=== PATIENT | female | born 1995 | race Caucasian/White ===

== ENCOUNTER 2017-05-31 20:05 | Emergency (ER) | payer OTHER ==
[~2017-05-31] VITALS: Ht 175.3 cm; Wt 67.4 kg
[2017-05-31 20:19] VITALS: TEMP 36.7; Ht 175.3 cm; Wt 67.4 kg
[2017-05-31] MEDS ORDERED: PANTOprazole SOD 40 MG TAB PO STA (21:36)
[2017-05-31] MEDS ORDERED: LIDOCAINE HCL 2% VISC SOLN 20 ML UDC PO STA (21:36)
[2017-05-31] MEDS ORDERED: ALUMINUM/MAGNESIUM SUSP 30 ML UDC PO STA (21:36)
[2017-05-31] MEDS ORDERED: BCPILLS PO (21:43)
[2017-05-31 22:06] LABS: BASO % 0.6 %; BASO ABS # 0.03 K/uL (0-0.2); EOS ABS # 0.05 K/uL (0-0.5); HEMATOCRIT 37.7 % (37-47); HEMOGLOBIN 13.4 g/dL (12.0-16.0); IG# 0.01 K/uL (0.00-0.02); LYMPH % 33.2 %; LYMPH ABS # 1.69 K/uL (1.2-3.4); MEAN CELL VOLUME 91.1 fL (80-100); MEAN CORPUSCULAR HEMOGLOBIN 32.4 pg (25-34); MEAN CORPUSCULAR HGB CONC 35.5 g/dl (32-36); MEAN PLATELET VOLUME 9.8 fL (7.4-10.4); MONO % 8.3 %; MONO ABS # 0.42 K/uL (0.11-0.59); NEUT % 56.7 %; NEUT ABS # 2.89 K/uL (1.4-6.5); PLATELET COUNT 236 K/uL (130-400); RED CELL DISTRIBUTION WIDTH CV 12.3 % (11.5-14.5); WHITE BLOOD COUNT 5.09 K/uL (4.8-10.8)
[2017-05-31 22:24] LABS: ALBUMIN 3.9 gm/dl (3.4-5.0); ALT/SGPT 31 U/L (12-78); BLOOD UREA NITROGEN 9 mg/dl (7-18); CALCIUM 9.1 mg/dl (8.5-10.1); CARBON DIOXIDE 25 mmol/L (21-32); CREATININE 0.66 mg/dl (0.60-1.20); GLUCOSE 82 mg/dl (70-99); LIPASE 144 U/L (73-393); POTASSIUM 3.2 mmol/L (3.5-5.1); SODIUM 140 mmol/L (136-145)
[2017-05-31 22:27] LABS: ALKALINE PHOSPHATASE 48 U/L (45-117); AST/SGOT 25 U/L (15-37); TOTAL PROTEIN 7.4 gm/dl (6.4-8.2)
[2017-05-31] MEDS ORDERED: POTASSIUM CHLORIDE 10 MEQ TABCR PO STA (22:32)
[2017-05-31] MEDS ORDERED: SODIUM CHLORIDE 0.9% 1000ML 1,000 ML IV STA (22:40)
--- NOTE | 2017-05-31 22:45 | DIAGNOSTIC IMAGING REPORT ---
ABDOMINAL ULTRASOUND, RIGHT UPPER QUADRANT HISTORY: Right upper quadrant pain. COMPARISON: None. FINDINGS: The liver is sonographically normal. There is no biliary ductal dilatation. Common bile duct measures 2 mm in caliber. The gallbladder is normal. There are no gallstones. Pancreas is within normal limits. There is no right hydronephrosis. IMPRESSION: No significant abnormality identified within the right upper quadrant. Electronically signed by: Yaniv Coates M.D. 05/31/2017 10:43 PM Dictated Date/Time: 05/31/2017 10:43 PM
[2017-05-31] MEDS ORDERED: PANT40TA PO (23:04)
--- NOTE | 2017-05-31 23:16 | EMERGENCY ROOM VISIT NOTE ---
History First contact with patient: 21:27 Chief Complaint: ABDOMINAL PAIN Stated Complaint: ABD PAIN,NAUSEA Nursing Triage Summary: abd pain, N/V since monday. dx with gastritis at [facility] on Monday. symptoms not improving. History of Present Illness The patient is a 22 year old female who presents to the Emergency Room with complaints of nausea, vomiting and epigastric discomfort for the past 4 days. Patient was seen at [facility] and diagnosed with gastritis. She's been taking Zantac with minimal improvement of symptoms. Patient drinks a lot of coffee and tea. She eats a lot of acidic foods. Patient describes the pain as discomfort, ranging in severity 4-10. Nothing makes it better or worse. Patient denies chest pain, dyspnea, fever, chills, black or blood in her emesis , black or blood in her stool, urinary symptoms. No history of similar symptoms in the past. Review of Systems See HPI for pertinent positives & negatives. A total of 10 systems reviewed and were otherwise negative. Past Medical/Surgical History none Social History Smoking Status: Never Smoker Smokeless Tobacco Use: No Alcohol Use: occasionally Drug Use: none Occupation Status: [employer] student Current/Historical Medications Scheduled Control Pills ( Control Pills), 1 TAB PO DAILY Pantoprazole (Protonix), 40 MG PO DAILY Physical Exam Vital Signs Date Time Temp Pulse Resp B/P (MAP) Pulse Ox O2 Delivery O2 Flow Rate FiO2 05/31/17 22:05 76 16 05/31/17 21:50 77 14 05/31/17 21:35 82 17 05/31/17 21:20 76 17 05/31/17 21:05 73 23 05/31/17 21:04 75 05/31/17 21:00 128/80 05/31/17 20:19 36.7 75 18 129/89 98 Room Air Physical Exam VITALS: Vitals are noted on the nurse's note and reviewed by myself. Vital signs stable. GENERAL: Pleasant female, in no acute distress, nondiaphoretic, well-developed well-nourished. SKIN: The skin was without rashes, erythema, edema, or bruising. There is no tenting of the skin. Capillary reflex less than 2 seconds. HEAD: Normocephalic atraumatic. EARS: External auditory canals clear, tympanic membranes pearly hardy without erythema or effusion bilaterally. EYES: Pupils equal round and reactive to light and accommodation. Conjunctivae without injection, sclerae without icterus. Extraocular movements intact. NOSE: Patent, turbinates without inflammation or discharge. MOUTH: Mucous membranes mild dry. Pharynx without erythema or exudate. Uvula midline. Airway patent. Tongue does not deviate. NECK: Supple without nuchal rigidity. No lymphadenopathy. No thyromegaly. Cervical spine is nontender. No JVD. HEART: Regular rate and rhythm without murmurs gallops or rubs. LUNGS: Clear to auscultation bilaterally without wheezes, rales or rhonchi. No dullness to percussion. No retractions or accessory muscle use. ABDOMEN: Positive bowel sounds x 4. Normal tympanic percussion. Soft, minimal epigastric tenderness, no CVA tenderness, without masses or organomegaly. Baeza sign negative. No guarding or rebound tenderness. MUSCULOSKELETAL: No muscle atrophy, erythema, or edema noted. NEURO: Patient was alert and oriented to person place and time. Normal sensation to light and sharp touch. No focal neurological deficits. Medical Decision & Procedures Laboratory Results 05/31/17 21:51 Red Blood Count 4.14, Mean Corpuscular Volume 91.1, Mean Corpuscular Hemoglobin 32.4, Mean Corpuscular Hemoglobin Concent 35.5, Mean Platelet Volume 9.8, Neutrophils (%) (Auto) 56.7, Lymphocytes (%) (Auto) 33.2, Monocytes (%) (Auto) 8.3, Eosinophils (%) (Auto) 1.0, Basophils (%) (Auto) 0.6, Neutrophils # (Auto) 2.89, Lymphocytes # (Auto) 1.69, Monocytes # (Auto) 0.42, Eosinophils # (Auto) 0.05, Basophils # (Auto) 0.03 05/31/17 21:51 Test 05/31/17 21:51 05/31/17 22:01 White Blood Count 5.09 K/uL (4.8-10.8) Red Blood Count 4.14 M/uL (4.2-5.4) Hemoglobin 13.4 g/dL (12.0-16.0) Hematocrit 37.7 % (37-47) Mean Corpuscular Volume 91.1 fL (80-100) Mean Corpuscular Hemoglobin 32.4 pg (25-34) Mean Corpuscular Hemoglobin Concent 35.5 g/dl (32-36) Platelet Count 236 K/uL (130-400) Mean Platelet Volume 9.8 fL (7.4-10.4) Neutrophils (%) (Auto) 56.7 % Lymphocytes (%) (Auto) 33.2 % Monocytes (%) (Auto) 8.3 % Eosinophils (%) (Auto) 1.0 % Basophils (%) (Auto) 0.6 % Neutrophils # (Auto) 2.89 K/uL (1.4-6.5) Lymphocytes # (Auto) 1.69 K/uL (1.2-3.4) Monocytes # (Auto) 0.42 K/uL (0.11-0.59) Eosinophils # (Auto) 0.05 K/uL (0-0.5) Basophils # (Auto) 0.03 K/uL (0-0.2) RDW Standard Deviation 41.0 fL (36.4-46.3) RDW Coefficient of Variation 12.3 % (11.5-14.5) Immature Granulocyte % (Auto) 0.2 % Immature Granulocyte # (Auto) 0.01 K/uL (0.00-0.02) Anion Gap 9.0 mmol/L (3-11) Est Creatinine Clear Calc Drug Dose 142.2 ml/min Estimated GFR () 147.4 Estimated GFR (Non- 127.2 BUN/Creatinine Ratio 12.9 (10-20) Calcium Level 9.1 mg/dl (8.5-10.1) Total Bilirubin 0.4 mg/dl (0.2-1) Direct Bilirubin < 0.1 mg/dl (0-0.2) Aspartate Amino Transf (AST/SGOT) 25 U/L (15-37) Alanine Aminotransferase (ALT/SGPT) 31 U/L (12-78) Alkaline Phosphatase 48 U/L (45-117) Total Protein 7.4 gm/dl (6.4-8.2) Albumin 3.9 gm/dl (3.4-5.0) Lipase 144 U/L (73-393) Human Chorionic Gonadotropin, Qual NEG (NEG) Urine Color DK YELLOW Urine Appearance CLEAR (CLEAR) Urine pH 6.0 (4.5-7.5) Urine Specific [place] 1.027 (1.000-1.030) Urine Protein NEG (NEG) Urine Glucose (UA) NEG (NEG) Urine Ketones 3+ (NEG) Urine Occult Blood TRACE (NEG) Urine Nitrite NEG (NEG) Urine Bilirubin NEG (NEG) Urine Urobilinogen NEG (NEG) Urine Leukocyte Esterase NEG (NEG) Urine WBC (Auto) 1-5 /hpf (0-5) Urine RBC (Auto) 0-4 /hpf (0-4) Urine Hyaline Casts (Auto) 1-5 /lpf (0-5) Urine Epithelial Cells (Auto) 20-30 /lpf (0-5) Urine Bacteria (Auto) NEG (NEG) Medications Administered Medications (Trade) Dose Ordered Sig/Tiffanie Route Start Time Stop Time Status Last Admin Dose Admin Lidocaine HCl (Viscous Lidocaine 2% Soln) 10 ml NOW STAT PO 05/31/17 21:36 05/31/17 21:38 DC 05/31/17 22:07 10 ML Al Hydroxide/Mg Hydroxide (Maalox Susp) 30 ml NOW STAT PO 05/31/17 21:36 05/31/17 21:38 DC 05/31/17 22:07 30 ML Pantoprazole Sodium (Protonix Tab) 40 mg NOW STAT PO 05/31/17 21:36 05/31/17 21:38 DC 05/31/17 22:06 40 MG Sodium Chloride 1,000 ml @ 999 mls/hr Q1H1M STAT IV 05/31/17 22:40 05/31/17 23:40 05/31/17 23:02 999 MLS/HR ED Course Prior records/ancillary studies reviewed. Triage Nursing notes reviewed. Additional history obtained from friend. The patient's history was concerning for nausea vomiting and epigastric abdominal pain. Differential diagnosis: Etiologies such as gastritis, GERD, appendicitis, diverticulitis, PUD, biliary pathology, UTI, pancreatitis, obstruction, mesenteric ischemia, aortic pathology , infections, inflammatory bowel disease, renal colic, as well as others were entertained. Physical examination findings: As above. ER treatment provided: GI cocktail, Protonix, potassium On reassessment the patient felt better. Diagnostics interpreted by me: The labs revealed hypokalemia and this is replaced orally. 3+ ketones on urinalysis Imaging studies: Ultrasound negative for cholecystitis per radiology and reviewed Exam and history seem consistent with gastritis. Patient felt much better after being medicated as above. Patient had several days of vomiting and now this has subsided. She is advised take Protonix daily and Zantac and Maalox for break the symptoms. She is advised to follow with GI if symptoms persist or here in the ER sooner for fevers, vomiting, black or blood in her emesis, worsening signs or symptoms or as needed. Patient did not have acute abdomen on exam. She was well-appearing. By the evaluation outlined above emergent etiologies such as appendicitis, diverticulitis, PUD, biliary pathology, UTI, pancreatitis, obstruction, mesenteric ischemia, aortic pathology, infections, inflammatory bowel disease, renal colic, as well as others were deemed relatively unlikely. The pt informed about the findings as listed above. All questions were answered and pleased with the treatment. Return instructions were outlined and the patient was discharged in stable condition. Outpatient prescription management: Protonix Referral: The patient was referred back to their primary care physician for follow-up in 2 to 3 days for a recheck of the current condition. Case reviewed with my attending Medical Decision As above Medication Reconcilliation Current Medication List: was personally reviewed by me Blood Pressure Screening Patient's blood pressure: Normal blood pressure Impression Primary Impression: Gastritis Additional Impressions: Epigastric abdominal pain Dehydration Vomiting Departure Information Dispostion Home / Self-Care Condition GOOD Prescriptions Pantoprazole (Protonix) 40 Mg Tab 40 MG PO DAILY for 14 Days, #14 TAB Prov: Kaity Calles PA-C 05/31/17 Referrals Ajit Sanchez D.O. Forms HOME CARE DOCUMENTATION FORM, IMPORTANT VISIT INFORMATION Patient Instructions GERD, My [facility] Additional Instructions Protonix 40 m tablet daily for next 2 weeks. Take this on an empty stomach. Try Maalox or Zantac for breakthrough symptoms for reflux. Avoid large meals. Avoid acidic foods. Rest and drink plenty of fluids as tolerated. Continue current medications. Avoid strenuous activities and anything that worsens your pain. Resume normal activities once your symptoms resolve. Return to the ER immediately for worsening or persistent chest pain, abdominal pain, black or blood in your stools, vomiting, fevers, chest pains, difficulty breathing, worsening of your condition, or as needed. Follow up with your primary physician in 2-3 days for a recheck of your current condition. If your symptoms are no better after the Protonix for 2 weeks then recommend referral to GI for possible endoscopy. Problem Qualifiers Primary Impression: Gastritis Gastritis type: unspecified gastritis Chronicity: acute Gastritis bleeding : without bleeding Qualified Codes: K29.00 - Acute gastritis without bleeding
[2017-05-31 23:35] VITALS: BP 120/83
[2017-05-31 23:40] VITALS: PULSE 71; O2SAT 100
== END 2017-05-31 23:42 | disposition home or self-care (01) ==
LOC: C.EDB 20:07
DX: K29.70 Gastritis, unspecified, without bleeding (principal); E86.0 Dehydration